=== PATIENT | female | born 1995 | race Caucasian/White ===

== ENCOUNTER 2017-03-12 10:37 | Emergency (ER) | payer OTHER ==
[~2017-03-12] VITALS: Ht 160 cm; Wt 67.4 kg
[2017-03-12 10:43] VITALS: TEMP 36.6; Ht 160 cm; Wt 67.4 kg
[2017-03-12] MEDS ORDERED: ETONMIS VAGRING (11:05)
--- NOTE | 2017-03-12 11:32 | DIAGNOSTIC IMAGING REPORT ---
CHEST 2 VIEWS ROUTINE HISTORY: cough, atypical chest pain COMPARISON: None. FINDINGS: The lungs are clear. Cardiac silhouette is normal in size. No pleural effusions. No pneumothorax. IMPRESSION: No acute process. Electronically signed by: Luis Rick M.D. 03/12/2017 11:31 AM Dictated Date/Time: 03/12/2017 11:29 AM
[2017-03-12] MEDS ORDERED: TRIA1SPR4 NAE (12:15)
[2017-03-12 12:27] VITALS: BP 134/89; PULSE 78; O2SAT 99
--- NOTE | 2017-03-12 17:28 | EMERGENCY ROOM VISIT NOTE ---
History First contact with patient: 10:47 Chief Complaint: COUGH Stated Complaint: CHEST PAIN AND COLD SYMPTOMS Nursing Triage Summary: cough cold , congestion X 3 weeks , had some chest pain in the middle of the night last night , denies sob or NV History of Present Illness The patient is a 21 year old female who presents to the Emergency Room with complaints of cough and cold symptoms as well as head congestion for the last 3 weeks. She was seen at [facility] last week and told it was her seasonal allergies. She was prescribed Augmentin at that time for a possible sinus infection but did not get it filled. She does have a history of seasonal allergies. She has been taking Zyrtec daily for 5 days without improvement. Last night she had a vigorous coughing spell that caused her to have severe upper chest pain. She states it kind of radiated into the biceps of her right arm. She did not have any wheezing. No history of asthma. She denies any current chest pain but does describe soreness across her pectoral and intercostal muscles. No fevers or chills. A male friend accompanies her today. No ear pain. No other treatment. Review of Systems REVIEW OF SYSTEM: HEENT: No dizziness, visual problems, hearing loss, or tinnitus. There is no difficulty swallowing and no oral lesions are present. LYMPH: No adenopathy. PULMONARY: No shortness of breath, sputum production or hemoptysis. CARDIOVASCULAR: No palpitations, shortness of breath or peripheral edema. GASTROINTESTINAL: No diarrhea, constipation, nausea, vomiting, or abdominal pain. GENITOURINARY: No dysuria, frequency, urgency or nocturia. NEUROLOGIC: No weakness, muscle tenderness, epilepsy or history of neurological problems. MUSCULOSKELETAL: No history of joint tenderness/swelling. No history of arthritis or arthralgias. SKIN: No rashes or lesions. PSYCHIATRIC: No history of depression or mental illness. ENDOCRINE: No history of diabetes, thyroid disorders, or abnormal hair growth. Past Medical/Surgical History Previous surgeries: None Medical history: Unremarkable Family History Significant for diabetes, heart disease, and hypertension. Parents are living. Social History Smoking Status: Never Smoker Smokeless Tobacco Use: No Alcohol Use: occasionally Drug Use: none Marital Status: single Housing Status: lives with roommate Occupation Status: unemployed, [employer] student Current/Historical Medications Scheduled Etonogestrel/Ethinyl Estradiol (Nuvaring), 1 EA VAGRING MONTHLY Triamcinolone Acetonide (Nasal (Nasacort Allergy 24Hr), 1 SPRAY PRASAD DAILY Allergies Coded Allergies: No Known Allergies (Unverified , 03/12/17) Physical Exam Vital Signs Date Time Temp Pulse Resp B/P Pulse Ox O2 Delivery O2 Flow Rate FiO2 03/12/17 12:27 78 20 134/89 99 03/12/17 10:43 36.6 97 18 138/88 99 Room Air Pain Rating (0-10): 0 Physical Exam Gen.: Well-developed, well-nourished, young female, in no acute distress. Sitting on a bed. Alert and oriented. Skin:Warm and dry with good turgor. No rashes or lesions. No ecchymosis or erythema. The patient is not diaphoretic. No abrasions. HEENT: Normocephalic atraumatic. Eyes PERRLA, EOMI. No conjunctiva or scleral injection. Ears TMs intact bilaterally with good light reflexes. No erythema or bulging. No hemotympanum. Canals are patent. Nares patent bilaterally without turbinate enlargement. Copious clear nasal drainage bilaterally. No epistaxis. Oropharynx without erythema or exudate. Uvula midline, oral mucosa moist. No lesions present. Postnasal drip is present on the posterior wall. Lymphatics are palpated without anterior or posterior chain enlargement or tenderness. Heart: Heart RRR. No MGR. Peripheral pulses are 2+. Lungs: Lungs are clear to auscultation. No crackles rhonchi or wheezing. Good air movement. The patient is able to take a deep breath. Musculoskeletal: Gross motor function of the upper extremities is intact and unremarkable. She does describe soreness with palpation over the upper pectoral muscle and intercostal muscles of the anterior chest. Medical Decision & Procedures ER Provider Diagnostic Interpretation: Chest x-ray obtained today was read by radiology as unremarkable. ED Course Patient was educated regarding today's findings. Conservative care measures were discussed. Chest x-ray was obtained. It is unremarkable. She likely has a muscle strain of the upper pectoral and intercostal muscles due to her vigorous coughing episode last night. She was reassured I do not suspect pneumonia. She does have significant nasal and sinus drainage. I would like her to stay on the [facility]. I will add Nasacort once per day to decrease her allergy symptoms. In case this is bacterial as suggested before, she should start the Augmentin twice a day for 10 days. Follow-up with [facility] services as needed or see her PCP. No radicular symptoms into her arms may have been related to the brachial plexus. She was reassured that I do not suspect cardiac source. Maintain hydration. Rest as needed. OTC cold preparations as needed for congestion. Medical Decision Possibility of PE, pneumonia, cardiac source, seasonal allergies, sinusitis, strep pharyngitis, and viral upper respiratory illness were considered. Impression Primary Impression: Seasonal allergies Additional Impression: Cough Departure Information Dispostion Home / Self-Care Condition GOOD Prescriptions Triamcinolone Acetonide (Nasal (Nasacort Allergy 24Hr) 55 Mcg/Act Spr 1 SPRAY PRASAD DAILY for 10 Days, #1 BTL Prov: Jeremy Woods,P.A. 03/12/17 Forms HOME CARE DOCUMENTATION FORM, IMPORTANT VISIT INFORMATION Patient Instructions My [facility] Additional Instructions Continue Zyrtec for your seasonal allergy symptoms Start the Augmentin 2 times a day for your sinuses Add Nasacort 1 spray in each nostril daily Follow-up with [facility] services as needed or return to the ED for any other concerns Problem Qualifiers
== END 2017-03-12 12:28 | disposition home or self-care (01) ==
LOC: C.EDB 10:39 → C.EDC 12:28
DX: J30.2 Other seasonal allergic rhinitis (principal); R05 Cough; Z83.3 Family history of diabetes mellitus; Z82.49 Family history of ischemic heart disease and other diseases of the circulatory system